=== PATIENT | male | born 1995 | race Caucasian/White ===

== ENCOUNTER 2018-05-16 17:33 | Emergency (ER) | payer MEDICAID ==
[~2018-05-16] VITALS: Ht 182.9 cm; Wt 68.0 kg
[2018-05-16 17:33] VITALS: BP_SYST 106
[2018-05-16 18:14] VITALS: BP_SYST 117
== END 2018-05-16 18:15 | disposition home or self-care (01) ==
LOC: SED 17:33
DX: H91.92 Unspecified hearing loss, left ear (principal); R42 Dizziness and giddiness; Z86.2 Personal history of diseases of the blood and blood-forming organs and certain disorders involving the immune mechanism
CPT/HCPCS: 99283